=== PATIENT | female | born 1975 | race Caucasian/White ===

== ENCOUNTER → 2016-06-28 | Outpatient (CLI) | payer OTHER ==
--- NOTE | 2016-06-28 11:23 | US ---
EXAMINATION TYPE: US pelvis complete transvag DATE OF EXAM: 06/28/2016 11:13 AM COMPARISON: 08/22/2015 CLINICAL HISTORY: Z80.49 Family HX of Pelvis CA. TECHNIQUE: Transvaginal (TV) and Transabdominal (TA) Date of LMP: Patient unsure, having every other month EXAM MEASUREMENTS: Uterus: 7.1 x 3.9 x 3.8 cm Endometrial Stripe: 0.3 cm Right Ovary: 1.8 x 1.6 x 2.2 cm Left Ovary: cm Morbidly obese patient, unable to empty bladder for vaginal portion of exam limiting study 1. Uterus: Anteverted, heterogeneous 2. Endometrium: wnl 3. Right Ovary: wnl 4. Left Ovary: Obscured by overlying bowel gas 5. Bilateral Adnexa: wnl 6. Posterior cul-de-sac: wnl IMPRESSION: No distinct abnormality seen. Uterine heterogeneity is nonspecific.
== END | disposition home or self-care (01) ==
LOC: RADUSWWP 09:39
PROVIDERS: ATTEND Family Medicine
DX: Z80.49 Family history of malignant neoplasm of other genital organs (principal)
CPT/HCPCS: 76830; 76856

== ENCOUNTER → 2017-10-06 | Outpatient (CLI) | payer OTHER ==
--- NOTE | 2017-10-06 13:36 | MM ---
Reason for exam: screening (asymptomatic). Last mammogram was performed 1 year and 6 months ago. Physical Findings: A clinical breast exam by your physician is recommended on an annual basis and results should be correlated with mammographic findings. MG Screening Mammo w CAD Bilateral CC and MLO view(s) were taken. Prior study comparison: April 12, 2016, bilateral MG screening mammo w CAD. There are scattered fibroglandular densities. There is a benign appearing stable in size 9mm central inner left breast mass. No suspicious abnormality. ASSESSMENT: Benign, BI-RAD 2 RECOMMENDATION: Routine screening mammogram of both breasts in 1 year.
== END ==
LOC: RADMAMWWP 07:47
PROVIDERS: ATTEND Family Medicine
DX: Z12.31 Encounter for screening mammogram for malignant neoplasm of breast (principal); Z78.0 Asymptomatic menopausal state
CPT/HCPCS: 77067

== ENCOUNTER → 2017-11-15 | Outpatient (CLI) | payer OTHER ==
--- NOTE | 2017-11-15 09:05 | BD ---
EXAMINATION TYPE: Axial Bone Density DATE OF EXAM: 11/15/2017 CLINICAL HISTORY: Z78.0 Post menopausal without HRT : no Height: 68.5 Weight: 305 FRAX RISK QUESTIONS: Alcohol (3 or more units per day): no Family History (Parent hip fracture): unsure Glucocorticoids (More than 3mos): yes, but infrequently uses Avar, sometimes Proair (Ex: prednisone, prednisolone, methylprednisolone, dexamethasone, and hydrocortisone). History of Fracture in Adulthood: ankle Secondary Osteoporosis: 1. Type 1 Diabetes: no 2. Hyperthyroidism: no 3. Menopause before 45: unsure 4. Malnutrition: unsure 5. Chronic liver disease: no Rheumatoid Arthritis: no Current Tobacco Use: not now RISK FACTORS HISTORY OF: Family History of Osteoporosis: unsure Active: somewhat Diet low in dairy products/other sources of calcium: no Postmenopausal woman: unsure If Premenopausal, do you have irregular periods: yes...LMP a bit over 3 months ago Take estrogen and/or progesterone medications: no Lost more than 2 inches in height since high school: no Frequent falls: no Poor Health: moderate Hyperparathyroidism: no Adrenal Insufficiency: no MEDICATIONS: Prednisone or other steroids: inhalers How Long: on & off for at least 5 years Thyroid Medications: no Osteoporosis Medications: no Additional Medications: metformin Additional History: knee scopes; borderline diabetic EXAM MEASUREMENTS: Bone mineral densitometry was performed using the Constant Therapy System. Bone mineral density as measured about the Lumbar spine is: ----- L1-L4(G/cm2): 1.228 T Score Values are as follows: ----- L2: 0.4 ----- L3: 0.8 ----- L4: 0.0 ----- L1-L4: 0.4 Bone mineral density BASELINE Bone mineral density about the R hip (g/cm2): 1.144 Bone mineral density about the L hip (g/cm2): 1.196 T Score values are as follows: -----R Neck: 0.8 -----L Neck: 1.1 -----R Total: 1.9 -----L Total: 2.4 Bone mineral density BASELINE IMPRESSION: No evidence for osteoporosis or osteopenia. NOTE: T-SCORE=SD OF THE YOUNG ADULT MEAN.
== END | disposition home or self-care (01) ==
LOC: RADBDWWP 07:28
PROVIDERS: ATTEND Family Medicine
DX: Z13.820 Encounter for screening for osteoporosis (principal); Z78.0 Asymptomatic menopausal state
CPT/HCPCS: 77080

== ENCOUNTER → 2018-11-07 | Outpatient (CLI) | payer OTHER ==
--- NOTE | 2018-11-07 10:55 | MM ---
Reason for exam: screening (asymptomatic). Last mammogram was performed 1 year and 1 month ago. Physical Findings: A clinical breast exam by your physician is recommended on an annual basis and results should be correlated with mammographic findings. MG Screening Mammo w CAD Bilateral CC and MLO view(s) were taken. Prior study comparison: October 06, 2017, bilateral MG screening mammo w CAD. April 12, 2016, bilateral MG screening mammo w CAD. There are scattered fibroglandular densities. No significant changes when compared with prior studies. ASSESSMENT: Benign, BI-RAD 2 RECOMMENDATION: Routine screening mammogram of both breasts in 1 year.
== END | disposition home or self-care (01) ==
LOC: RADMAMWWP 07:04
PROVIDERS: ATTEND Family Medicine
DX: Z12.31 Encounter for screening mammogram for malignant neoplasm of breast (principal)
CPT/HCPCS: 77067

== ENCOUNTER → 2019-03-22 | Outpatient (CLI) | payer OTHER ==
--- NOTE | 2019-03-22 17:04 | CONS ---
CONSULTATION DATE OF SERVICE: 03/22/2019 This patient is a 43-year-old lady who has been evaluated in the sleep center for possible obstructive sleep apnea-hypopnea syndrome. HISTORY OF PRESENT ILLNESS/SLEEP-WAKE EVALUATION: Patient usually goes to bed around midnight and sleeps until 5 a.m. on weekdays. On weekends time of going to bed varies, but she still wakes up at about 5 or 6 a.m. Usually no significant problems with falling asleep, although she has a TV set in the bedroom. She sleeps on the side position with loud snoring. She wakes up from sleep with a dry mouth, sometimes drinks water in the morning, has one episode of nocturia in the morning after awakenings, and coughing during sleep. She has episodes of choking, sweating, sleeptalking, palpitations. During the day, the patient has difficulties paying attention, has problems with memory, episodes of anxiety. Fenton Sleepiness Scale is 5. She may take about 3 naps a week, usually early afternoon. No history of hypnagogic hallucinations, sleep paralysis or cataplexy. PAST MEDICAL HISTORY: Past medical history is positive for diabetes and history of pulmonary embolism at the age of 21. REVIEW OF SYSTEMS: Patient's menstrual periods have practically stopped for 2 years. Her weight has significantly increased during the last 10 years by about 30 pounds. SOCIAL HISTORY: Positive for smoking in the past for about 20 years, less than a pack a day; quit 5 years ago. Alcohol consumption rarely. FAMILY HISTORY: Positive for snoring, arthritis, asthma. MEDICATIONS: Metformin. PAST SURGICAL HISTORY: Bilateral arthroscopic knee surgery at age of 29. PHYSICAL EXAMINATION: GENERAL: A pleasant lady without distress. VITAL SIGNS: BP 130/84, HR 83, RR 16, height 5 feet 8-1/2 inches, weight 293.4 pounds, body mass index 43.9, temperature 97.5, oxygen saturation at room air 96%. HEENT: PERRLA, EOMI. Evaluation of oropharynx showed tongue protrudes midline. Extremely low position of soft palate. Mallampati IV. Significant restriction of nasal breathing bilaterally. NECK: Supple. No JVD. Thyroid is not palpable. Wide neck; 16 inches in circumference. LUNGS: Clear to percussion and to auscultation. Good air exchange. No wheezing or rhonchi. HEART: S1, S2 regular. No murmurs, gallops or rubs. ABDOMEN: Obese. EXTREMITIES: No clubbing or cyanosis. RFID DEVELOPER: Awake, alert, and oriented X3. Cranial nerves 2 to 7 intact. There is no fasciculation or atrophy. noted. No focal deficits observed. IMPRESSION: 1. Snoring, awakenings from sleep with choking, extremely low position of soft palate, Mallampati IV, wide neck, obesity; obstructive sleep apnea-hypopnea syndrome. 2. Obesity; body mass index 43.9. 3. Restriction of nasal breathing bilaterally. 4. Diabetes. 5. Perimenopausal. 6. Status post bilateral arthroscopic knee surgery. 7. History of pulmonary embolism at age of 21. PLAN: 1. Polysomnography for evaluation of patient's breathing during sleep. 2. CPAP/BiPAP titration if sleep study confirms obstructive sleep apnea-hypopnea syndrome. 3. Preferable position during sleep on the side. 4. No driving if patient feels any sleepiness. 5. I will see patient for follow up visit to explain results of testing and following plan. Thank you very much for referring this patient for evaluation. Sincerely, Eric Graff MD, PhD, FAASM Diplomat of [place] [employer] [place] [employer] Roving Inspector of [facility] [place] MMODL / CUBAN: [id number] /
== END ==
LOC: SLEEP 10:20
PROVIDERS: ATTEND Internal Medicine
DX: G47.33 Obstructive sleep apnea (adult) (pediatric) (principal); E66.9 Obesity, unspecified; J98.8 Other specified respiratory disorders; E11.9 Type 2 diabetes mellitus without complications; Z78.0 Asymptomatic menopausal state; Z98.890 Other specified postprocedural states; Z86.711 Personal history of pulmonary embolism; Z68.41 Body mass index [BMI] 40.0-44.9, adult; Z79.84 Long term (current) use of oral hypoglycemic drugs; Z87.891 Personal history of nicotine dependence
CPT/HCPCS: 99211

== ENCOUNTER → 2019-11-02 | Outpatient (CLI) | payer OTHER ==
--- NOTE | 2019-11-02 08:10 | US ---
EXAMINATION TYPE: US abdomen complete DATE OF EXAM: 11/02/2019 COMPARISON: 08/22/2015 CLINICAL HISTORY: 44-year-old female R10.11 RUQ Pain. TECHNIQUE: Multiple sonographic images of the abdomen are obtained. FINDINGS: EXAM MEASUREMENTS: Liver Length: 14.4 cm Gallbladder Wall: 0.2 cm CBD: 0.3 cm Spleen: 11.5 cm Right Kidney: 11.7 x 4.6 x 4.2 cm Left Kidney: 12.9 x 5.2 x 5.3 cm Welder Oxyhydrogen notes: Technically difficult study due to patient body habitus and midline bowel gas. Pancreas: Only a small portion of the pancreatic body is visualized and shows no gross abnormality. Remainder is suboptimally visualized due to shadowing from bowel gas. Liver: difficult to penetrate. The secondary degenerative limits assessment for focal lesions. Gallbladder: No abnormal distention or wall thickening. No stones seen Evidence for sonographic Mckeon's sign: no CBD: wnl Spleen: wnl Right Kidney: No hydronephrosis. Left Kidney: No hydronephrosis. Upper IVC: wnl Abd Aorta: limited visualization , visualized portions wnl. IMPRESSION: 1. Moderate to severe hepatic steatosis. Correlate with LFTs, lipid profile, and patient risk factors . 2. No cholelithiasis, acute cholecystitis, or biliary ductal dilatation.
[2019-11-02 08:29] LABS: Basophils # (A) 0.1 k/uL (0-0.2); Basophils % (A) 1 %; Eosinophils # (A) 0.2 k/uL (0-0.7); Eosinophils % (A) 2 %; HCT 41.4 % (34.0-46.0); HGB 13.6 gm/dL (11.4-16.0); Lymphocytes # (A) 2.3 k/uL (1.0-4.8); Lymphocytes % (A) 24 %; MCH 28.6 pg (25.0-35.0); MCV 86.8 fL (80.0-100.0); Mean Platelet Volume 7.2; Monocytes # (A) 0.5 k/uL (0-1.0); Monocytes % (A) 6 %; Neutrophils # (A) 6.3 k/uL (1.3-7.7); Neutrophils % (A) 66 %; Platelet Count 280 k/uL (150-450); RBC 4.76 m/uL (3.80-5.40); RDW 14.3 % (11.5-15.5); WBC 9.6 k/uL (3.8-10.6)
[2019-11-02 08:42] LABS: ALT 31 U/L (4-34); AST 26 U/L (14-36); African American GFR (CKD) >90 (>60 ml/min/1.73 sqM); Albumin 4.3 g/dL (3.5-5.0); Alkaline Phosphatase 63 U/L (38-126); Anion Gap 5 mmol/L; Blood Urea Nitrogen 16 mg/dL (7-17); Calcium 9.2 mg/dL (8.4-10.2); Carbon Dioxide 26 mmol/L (22-30); Chloride 108 mmol/L (98-107); Glucose 119 mg/dL (74-99); Non-African American GFR(CKD) >90 (>60 ml/min/1.73 sqM); Potassium 4.3 mmol/L (3.5-5.1); Sodium 139 mmol/L (137-145); Total Bilirubin 0.5 mg/dL (0.2-1.3); Total Protein 7.2 g/dL (6.3-8.2)
[2019-11-03 05:45] LABS: Hemoglobin A1C 6.4 % (4.0-6.0)
== END | disposition home or self-care (01) ==
LOC: RADUSWWP 07:38
PROVIDERS: ATTEND Family Medicine
DX: K76.0 Fatty (change of) liver, not elsewhere classified (principal); E11.9 Type 2 diabetes mellitus without complications
CPT/HCPCS: 36415; 76700; 80053; 83036; 85025

== ENCOUNTER → 2020-01-01 | Outpatient (CLI) | payer OTHER ==
--- NOTE | 2020-01-03 11:40 | MM ---
Reason for exam: screening (asymptomatic). Last mammogram was performed 1 year and 2 months ago. Physical Findings: A clinical breast exam by your physician is recommended on an annual basis and results should be correlated with mammographic findings. MG Screening Mammo w CAD Bilateral CC and MLO view(s) were taken. Prior study comparison: November 07, 2018, bilateral MG screening mammo w CAD. October 06, 2017, bilateral MG screening mammo w CAD. There are scattered fibroglandular densities. No significant changes when compared with prior studies. ASSESSMENT: Negative, BI-RAD 1 RECOMMENDATION: Routine screening mammogram of both breasts in 1 year.
== END | disposition home or self-care (01) ==
LOC: RADMAMWWP 15:42
PROVIDERS: ATTEND Family Medicine
DX: Z12.39 Encounter for other screening for malignant neoplasm of breast (principal)
CPT/HCPCS: 77067

== ENCOUNTER → 2020-08-27 | Outpatient (CLI) | payer OTHER ==
--- NOTE | 2020-08-27 11:03 | CT ---
EXAMINATION TYPE: CT abdomen pelvis wo con DATE OF EXAM: 08/27/2020 COMPARISON: None INDICATION: bladder pressure while urinating, difficulty urinating DLP: 2257.7 mGycm, Automated exposure control for dose reduction was used. CONTRAST: 0 mL of Isovue 300. Study performed without Oral Contrast TECHNIQUE: Axial images were obtained from above the diaphragm to the pubic rami in the axial plane a t 5 mm thick sections. Reconstructed images are reviewed on the computer in the coronal plane. FINDINGS: Limited CT sections are obtained the lung bases. The lung bases are clear. CT ABDOMEN: Liver: Moderate fatty infiltration is present in the liver. Hepatomegaly is present with a craniocaud al dimension of 25 cm. Spleen: Normal Pancreas: Normal Adrenal glands: The adrenal glands are normal. Gallbladder: Normal Kidneys: No masses are evident. No hydronephrosis is present. No cysts are present. No renal stone s are identified. Aorta: Vascular calcification is within the aorta. Inferior vena cava: Normal. CT PELVIS: Loops of bowel within the abdomen and pelvis are normal. This study is without oral contrast limi ting bowel evaluation. Appendix: Normal as visualized. Urinary bladder: Normal. Genitourinary structures: Uterus is normal. Adnexal regions are clear. No free fluid is within the pe lvis. Osseous structures: No suspicious lytic or sclerotic lesions. IMPRESSIONS: 1. Hepatomegaly with moderate fatty infiltration
== END | disposition home or self-care (01) ==
LOC: RADCTMAIN 08:41
PROVIDERS: ATTEND Family Medicine
DX: R39.198 Other difficulties with micturition (principal); R16.0 Hepatomegaly, not elsewhere classified; K76.0 Fatty (change of) liver, not elsewhere classified
CPT/HCPCS: 74176

== ENCOUNTER → 2020-12-17 | Outpatient (CLI) | payer OTHER ==
[2020-12-17 15:27] LABS: HCT 42.7 % (37.2-46.3); HGB 13.1 g/dL (12.0-15.0); MCH 27.5 pg (27.0-32.0); MCHC 30.7 g/dL (32.0-37.0); MCV 89.5 fL (80.0-97.0); Mean Platelet Volume 10.3 fL (9.5-12.2); Platelet Count 302 X 10*3/uL (140-440); RBC 4.77 X 10*6/uL (4.10-5.20); RDW 13.9 % (11.5-14.5); WBC 9.87 X 10*3/uL (4.50-10.00)
[2020-12-17 23:00] LABS: African American GFR (CKD) 103.2 (60.0-200.0); Albumin 4.6 g/dL (3.80-4.90); Albumin/Globulin Ratio 1.7 (1.60-3.17); Anion Gap 12.9 mmol/L (4.00-12.00); BUN/Creat Ratio 22.5 Ratio (12.00-20.00); Calcium 9.6 mg/dL (8.7-10.3); Carbon Dioxide 21.1 mmol/L (21.6-31.8); Chol/HDL Ratio 3.9; Globulin 2.7 g/dL (1.6-3.3); LDL Cholesterol,Calculated 103.6 mg/dL (0.0-131.0); Potassium 4.5 mmol/L (3.5-5.5); Total Bilirubin 0.5 mg/dL (0.2-1.2); Total Protein 7.3 g/dL (6.2-8.2); VLDL Calculation 18.4 mg/dL (5.00-40.00)
[2020-12-18 07:30] LABS: Microalbumin Creatinine Ratio <30 mg/g Creat (0-30); Urine Creatinine 105.8 mg/dL
== END | disposition home or self-care (01) ==
LOC: LABWHC1 10:01
PROVIDERS: ATTEND Internal Medicine
DX: E78.5 Hyperlipidemia, unspecified (principal); E11.9 Type 2 diabetes mellitus without complications
CPT/HCPCS: 36415; 80053; 80061; 82043; 82570; 83036; 84443; 85027

== ENCOUNTER → 2021-01-12 | Outpatient (CLI) | payer OTHER ==
--- NOTE | 2021-01-13 09:31 | MM ---
Reason for exam: screening (asymptomatic). Last mammogram was performed 1 year ago. History: Took hormonal contraceptives for 4 years. Physical Findings: A clinical breast exam by your physician is recommended on an annual basis and results should be correlated with mammographic findings. MG Screening Mammo w CAD Bilateral CC and MLO view(s) were taken. Prior study comparison: January 01, 2020, bilateral MG screening mammo w CAD. November 07, 2018, bilateral MG screening mammo w CAD. There are scattered fibroglandular densities. Finding: There is a 5 mm equal density (isodense), obscured mass in the central position of the right breast. ASSESSMENT: Incomplete: need additional imaging evaluation, BI-RAD 0 RECOMMENDATION: Special view mammogram of the right breast. If lesion persists on supplemental views, image directed ultrasound is recommended. [facility] will attempt to contact patient to return for supplemental views and ultrasound if indicated.
== END | disposition home or self-care (01) ==
LOC: RADMAMWWP 09:14
PROVIDERS: ATTEND Internal Medicine
DX: Z12.31 Encounter for screening mammogram for malignant neoplasm of breast (principal)
CPT/HCPCS: 77067

== ENCOUNTER → 2021-01-22 | Outpatient (CLI) | payer OTHER ==
--- NOTE | 2021-01-22 12:23 | USB ---
Reason for exam: additional evaluation requested from abnormal screening. History: Took hormonal contraceptives for 4 years. US Breast Workup Limited RT Right limited breast ultrasound including focal area of concern, retroareolar and axilla demonstrates no cystic or solid lesion seen. These results were verbally communicated with the patient and result sheet given to the patient on 01/22/21. ASSESSMENT: Negative, BI-RAD 1 RECOMMENDATION: Follow-up diagnostic mammogram of the right breast in 3 months.
--- NOTE | 2021-01-22 12:23 | MM ---
Reason for exam: additional evaluation requested from abnormal screening. Last mammogram was performed less than 1 month ago. History: Took hormonal contraceptives for 4 years. Physical Findings: Nurse did not find any significant physical abnormalities on exam. MG Work Up Mamm w CAD RT Spot compression CC, spot compression MLO, and LM view(s) were taken of the right breast. Prior study comparison: January 12, 2021, bilateral MG screening mammo w CAD. January 01, 2020, bilateral MG screening mammo w CAD. Finding: There is a 7 mm equal density (isodense), partially obscured lobulated mass located 4 cm from the nipple in the 12 o'clock position of the right breast. New finding since January 12, 2021 and January 01, 2020. These results were verbally communicated with the patient and result sheet given to the patient on 01/22/21. ASSESSMENT: Incomplete: need additional imaging evaluation, BI-RAD 0 RECOMMENDATION: Ultrasound of the right breast.
== END | disposition home or self-care (01) ==
LOC: RADMAMWWP 10:31
PROVIDERS: ATTEND Internal Medicine
DX: N63.15 Unspecified lump in the right breast, overlapping quadrants (principal); Z79.3 Long term (current) use of hormonal contraceptives
CPT/HCPCS: 77065

== ENCOUNTER → 2021-04-29 | Outpatient (CLI) | payer OTHER ==
--- NOTE | 2021-04-29 11:40 | MM ---
Reason for exam: follow-up at short interval from prior study. Last mammogram was performed 3 months ago. History: Took hormonal contraceptives for 4 years. Physical Findings: Nurse did not find any significant physical abnormalities on exam. MG Diagnostic Mammo RT w CAD CC and MLO view(s) were taken of the right breast. Prior study comparison: January 22, 2021, right breast MG work up mamm w CAD RT. January 12, 2021, bilateral MG screening mammo w CAD. The breast tissue is heterogeneously dense. This may lower the sensitivity of mammography. There is no discrete abnormality including area of concern. No significant new findings when compared with previous films. These results were verbally communicated with the patient and result sheet given to the patient on 04/29/21. ASSESSMENT: Probably benign, BI-RAD 3 RECOMMENDATION: Return to routine screening mammogram schedule for both breasts. Back on schedule for December 2021.
== END | disposition home or self-care (01) ==
LOC: RADMAMWWP 10:21
PROVIDERS: ATTEND Internal Medicine
DX: R92.8 Other abnormal and inconclusive findings on diagnostic imaging of breast (principal)
CPT/HCPCS: 77065

== ENCOUNTER → 2022-01-14 | Outpatient (CLI) | payer OTHER ==
--- NOTE | 2022-01-15 08:51 | MM ---
Reason for Exam: Screening (asymptomatic). Last screening mammogram was performed 12 month(s) ago. Patient History: Menarche at age 14. First Full-Term at age 19. Patient used Hormonal Contraceptives for 4 years. Risk Values: Hoda 5 year model risk: 0.6%. NCI Lifetime model risk: 6.3%. Prior Study Comparison: 01/12/2021 Bilateral Screening Mammogram, [facility]. 01/22/2021 Right Diagnostic Mammogram, [facility]. 04/29/2021 Right Diagnostic Mammogram, [facility]. Tissue Density: There are scattered fibroglandular densities. Findings: Analyzed By CAD. There is no suspicious group of microcalcifications or new suspicious mass in either breast. Overall Assessment: Negative, BI-RAD 1 Management: Screening Mammogram of both breasts in 1 year. A clinical breast exam by your physician is recommended on an annual basis and results should be correlated with mammographic findings. Electronically signed and approved by: Arthur Manuel DO
== END | disposition home or self-care (01) ==
LOC: RADMAMWWP 09:28
PROVIDERS: ATTEND Family Medicine
DX: Z12.31 Encounter for screening mammogram for malignant neoplasm of breast (principal)
CPT/HCPCS: 77067

== ENCOUNTER → 2022-02-01 | Outpatient (CLI) | payer OTHER ==
--- NOTE | 2022-02-01 15:59 | XR ---
EXAMINATION TYPE: XR lumbar spine 2 or 3V DATE OF EXAM: 02/01/2022 CLINICAL HISTORY: M549, pain for one year. History of falls. TECHNIQUE: Frontal and lateral radiographs of the lumbar spine. COMPARISON: None. FINDINGS: There are 5 lumbar type vertebral bodies identified. The lumbar spine shows satisfactory alignment w ithout evidence of acute fracture or dislocation. Vertebral body heights are within normal limits. Mi ld degenerative changes at L3-L5 with disc space narrowing, endplate sclerosis, and anterior osteophy tosis.. Minimal vascular sclerosis. The overlying soft tissue appears unremarkable. IMPRESSION: 1. No acute fracture or dislocation is seen in the lumbar spine. 2. Mild degenerative disc changes of the lumbar spine.
== END | disposition home or self-care (01) ==
LOC: RADXRWHC 15:28
PROVIDERS: ATTEND Nurse Practitioner Family
DX: M51.36 Other intervertebral disc degeneration, lumbar region (principal)
CPT/HCPCS: 72100

== ENCOUNTER → 2023-04-22 | Outpatient (CLI) | payer OTHER ==
--- NOTE | 2023-04-22 13:17 | XR ---
EXAMINATION TYPE: XR chest 2V DATE OF EXAM: 04/22/2023 COMPARISON: NONE HISTORY: Presurgical evaluation. TECHNIQUE: Frontal and lateral views of the chest are obtained. FINDINGS: There is no focal air space opacity, pleural effusion, or pneumothorax seen. The cardiac silhouette size is within normal limits. The osseous structures are intact. IMPRESSION: No acute cardiopulmonary process.
== END | disposition home or self-care (01) ==
LOC: RADXRMAIN 13:04
PROVIDERS: ATTEND Family Medicine
DX: Z01.818 Encounter for other preprocedural examination (principal)
CPT/HCPCS: 71046

== ENCOUNTER → 2023-05-04 | Outpatient (CLI) | payer OTHER ==
--- NOTE | 2023-05-05 08:19 | MM ---
Reason for Exam: Screening (asymptomatic). Last mammogram was performed 1 year(s) and 4 month(s) ago. Patient History: Menarche at age 14. First Full-Term at age 19. Postmenopausal. Patient used Hormonal Contraceptives for 4 years. Risk Values: Hoda 5 year model risk: 0.6%. NCI Lifetime model risk: 6.2%. Prior Study Comparison: 01/22/2021 Right Diagnostic Mammogram, [facility]. 04/29/2021 Right Diagnostic Mammogram, [facility]. 01/14/2022 Bilateral MG screening mammo w CAD, [facility]. Tissue Density: The breast tissue is heterogeneously dense. This may lower the sensitivity of mammography. Findings: Analyzed By CAD. There is no suspicious group of microcalcifications or new suspicious mass in either breast. Overall Assessment: Benign, BI-RAD 2 Management: Screening Mammogram of both breasts in 1 year. . Patient should continue monthly self-breast exams. A clinical breast exam by your physician is recommended on an annual basis. This exam should not preclude additional follow-up of suspicious palpable abnormalities. Note on Hoda scores and lifetime risk: 1. A Hoda score greater than 3% is considered moderate risk. If this is the case, consider specialist referral to assess eligibility for a risk reducing agent. 2. If overall lifetime risk for the development of breast cancer is 20% or higher, the patient may qualify for future screening with alternating mammogram and breast MRI. Electronically signed and approved by: Leoncio Rdz M.D. Radiologis
== END | disposition home or self-care (01) ==
LOC: RADMAMWWP 10:11
PROVIDERS: ATTEND Family Medicine
DX: Z12.31 Encounter for screening mammogram for malignant neoplasm of breast (principal); Z78.0 Asymptomatic menopausal state
CPT/HCPCS: 77063; 77067

== ENCOUNTER → 2023-07-04 | Outpatient (CLI) | payer OTHER ==
[2023-07-04 10:03] VITALS: BP 144/90; PULSE 85; TEMP 98; BMI 34.0
--- NOTE | 2023-07-05 09:34 | P.HPBAR ---
Bariatric H&P - History & Physicial H&P Date: 07/04/23 History & Physicial: Visit/CC: new patient Patient initial contact: Initial weight: 100.698 kg Initial weight in pounds: 222.00 Height: 5 ft 8.5 in Initial BMI: 33.3 Last weight: Current weight: 102.965 kg Current weight in pounds: 227.00 Current BMI: 34.0 [place] body weight (based on NIH guidelines): 64.637 kg Excess body weight loss: The patient is a 47 year-old F who presents for Bariatric Assessment. The patient has lost over 100 pounds due to diet and exercise. Patient has a well- formed panniculus. The patient is requesting panniculectomy. Patient is a trouble with chronic skin irritations under her panniculus flap. Past Medical History Past Medical History: Asthma, Blood Disorder, Hyperlipidemia, Pulmonary Embolus (PE) Additional Past Medical History / Comment(s): migraines, PE in 1996 during , factor V blood disorder History of Any Multi-Drug Resistant Organisms: None Reported Past Surgical History: Orthopedic Surgery Additional Past Surgical History / Comment(s): bilateral knee arthroscopy, rectocele repair Past Anesthesia/Blood Transfusion Reactions: No Reported Reaction Past Psychological History: Anxiety Smoking Status: Former smoker Past Alcohol Use History: Rare Additional Past Alcohol Use History / Comment(s): quit smoking in 2015 Past Drug Use History: Marijuana Surgical - Exam Vital Signs Temp Pulse BP 98.0 F 85 144/90 07/04/23 09:46 07/04/23 09:46 07/04/23 09:46 - General well developed, well nourished, no distress - Eyes PERRL - ENT normal pinna, normal nares - Neck no masses - Respiratory normal expansion - Cardiovascular Rhythm: regular - Abdomen Well-formed panniculus which hangs over the pubic area. There is evidence of chronic skin irritation. Abdomen: soft, non tender Bariatric Assessment & Plan Plan: Panniculus due to weight loss in excess of 100 pounds. Patient will be scheduled for panniculectomy when she meets her insurance authorization requirements. Patient understands that this is not a cosmetic procedure tic procedure however procedure move redundant skin and fat. Patient understands that she may need revisional cosmetic surgery after panniculectomy. I did discuss the patient that she has redundant skin and fat on her back arms and legs which may require cosmetic surgery if she request this. Bariatric Checklist Checklist: Plan: Checklist: EGD: 1. Hiatal hernia: 2. H. Pylori: HgbA1c: Vitamin D: Smoking: Current every day smoker Primary care physician referral: Dr. Masters Psychiatry clearance: Cardiology clearance: Sleep study: Diet journal: VTE risk score: VTE risk level: Rehab needs at discharge:
== END ==
LOC: BARWHC3 09:33
PROVIDERS: ATTEND Surgery
DX: M79.3 Panniculitis, unspecified (principal); J45.909 Unspecified asthma, uncomplicated; E78.5 Hyperlipidemia, unspecified; F12.90 Cannabis use, unspecified, uncomplicated; F41.9 Anxiety disorder, unspecified; Z86.711 Personal history of pulmonary embolism; Z86.2 Personal history of diseases of the blood and blood-forming organs and certain disorders involving the immune mechanism; Z87.891 Personal history of nicotine dependence; Z79.82 Long term (current) use of aspirin
CPT/HCPCS: 99212

== ENCOUNTER → 2024-02-15 | Outpatient (CLI) | payer OTHER ==
[2024-02-16 02:15] LABS: Basophils # (A) 0.07 X 10*3/uL (0.00-0.10); Basophils % (A) 0.9 %; Eosinophils # (A) 0.12 X 10*3/uL (0.04-0.35); Eosinophils % (A) 1.6 %; HCT 36.8 % (37.2-46.3); HGB 11.6 g/dL (12.0-15.0); Lymphocytes # (A) 2.51 X 10*3/uL (0.90-5.00); Lymphocytes % (A) 32.9 %; MCHC 31.5 g/dL (32.0-37.0); MCV 88.7 FL (80.0-97.0); Mean Platelet Volume 10.2 FL (9.5-12.2); Monocytes # (A) 0.46 X 10*3/uL (0.20-1.00); NRBC Per 100 WBC 0 X 10*3/uL (0.00-0.01); Neutrophils # (A) 4.44 X 10*3/uL (1.80-7.70); Neutrophils % (A) 58.2 %; Platelet Count 291 X 10*3/uL (140-440); RBC 4.15 X 10*6/uL (4.10-5.20); RDW 13.4 % (11.5-14.5); WBC 7.63 X 10*3/uL (4.50-10.00)
[2024-02-16 03:12] LABS: Estradiol <20.0 pg/mL
[2024-02-16 04:05] LABS: Thyroid Peroxidase Antibodies 9.1 U/mL (0.0-33.0)
[2024-02-16 04:29] LABS: Progesterone 0.2 ng/mL
== END | disposition home or self-care (01) ==
LOC: LABWHC1 15:43
PROVIDERS: ATTEND Midwife
DX: F41.3 Other mixed anxiety disorders (principal); R68.82 Decreased libido
CPT/HCPCS: 36415; 82670; 83001; 84144; 84403; 84443; 85025; 86376; 86800